=== PATIENT | male | born 1980 | race Two or more races ===

== ENCOUNTER 2016-09-25 15:04 | Emergency (ER) | payer OTHER ==
[~2016-09-25] VITALS: Ht 193 cm; Wt 122.0 kg
[2016-09-25] MEDS ORDERED: SODIUM CHLORIDE FLUSH 10ML SYR IVF ONE ×2 (15:30→16:00)
[2016-09-25] MEDS ORDERED: SODIUM CHLORIDE 0.9% 1,000ML IVBOLUS ONE ×2 (15:30→16:00)
[2016-09-25] MEDS ORDERED: MORPHINE SULFATE 4 MG/ML, 1ML IVPush PRN (15:30)
[2016-09-25] MEDS ORDERED: FAMOTIDINE 20 MG/2 ML IVP ONE (15:30)
[2016-09-25] MEDS ORDERED: ONDANSETRON 2MG/ML, 2ML IVPush ONE ×2 (15:30→16:00)
[2016-09-25] MEDS ORDERED: SODIUM CHLORIDE 0.9% 1,000 ML IV ONE (15:42)
[2016-09-25 15:47] VITALS: BP 113/68
[2016-09-25] MEDS ORDERED: HYDROmorphone 1 MG/ML, 1ML ONE (15:53)
[2016-09-25] MEDS ORDERED: ONDANSETRON 2MG/ML, 2ML ONE (15:54)
[2016-09-25] MEDS ORDERED: HYDROmorphone 1 MG/ML, 1ML IVPush PRN (16:00)
[2016-09-25 16:22] LABS: ASPARTATE AMINO TRANSFERASE 40 U/L (15-37); BLOOD UREA NITROGEN 12 mg/dL (7-18)
== END 2016-09-25 18:03 | disposition home or self-care (01) ==
LOC: ED 17:57
DX: K80.70 Calculus of gallbladder and bile duct without cholecystitis without obstruction (principal)
CPT/HCPCS: 36415; 76700; 80053; 83690; 85025; 93005; 96361; 96374; 96375; 99285; J1170; J2405; J7030

== ENCOUNTER 2016-09-30 13:04 | Inpatient (IN) | payer OTHER ==
[~2016-09-30] VITALS: Ht 190.5 cm; Wt 111.5 kg
[2016-09-30 14:50] LABS: ASPARTATE AMINO TRANSFERASE 219 U/L (15-37); BLOOD UREA NITROGEN 11 mg/dL (7-18)
[2016-09-30] MEDS ORDERED: HYDR-3240 PO (15:02)
[2016-09-30] MEDS ORDERED: ONDA4TAB10 PO (15:03)
[2016-09-30] MEDS ORDERED: CEFTRIAXONE 1,000 MG in SODIUM CHLORIDE 0.9% 50 ML IV ONE (15:30)
[2016-09-30] MEDS ORDERED: METRONIDAZOLE PMX 500MG/100ML 100 ML IV ONE (15:30)
[2016-09-30] MEDS ORDERED: ONDANSETRON 2MG/ML, 2ML IVPush ONE (16:00)
[2016-09-30] MEDS ORDERED: SODIUM CHLORIDE 0.9% 1,000ML IVBOLUS ONE (16:00)
[2016-09-30] MEDS ORDERED: HYDROmorphone 1 MG/ML, 1ML IVPush PRN (16:00)
[2016-09-30] MEDS ORDERED: SODIUM CHLORIDE FLUSH 10ML SYR IVF ONE (16:00)
[2016-09-30] MEDS ORDERED: ONDANSETRON 2MG/ML, 2ML ONE (16:11)
[2016-09-30] MEDS ORDERED: HYDROmorphone 1 MG/ML, 1ML ONE (16:11)
[2016-09-30] MEDS ORDERED: METRONIDAZOLE PMX 500MG/100ML 100 ML ONE (16:25)
[2016-09-30 17:16] VITALS: BP 123/74
[2016-09-30] MEDS: D5%-0.45% NACL 1,000 ML IV SCH ×2 (17:28→23:59)
[2016-09-30] MEDS ORDERED: HYDROcodone/APAP 5/325 TABLET PO PRN (17:30)
[2016-09-30] MEDS ORDERED: ONDANSETRON 2MG/ML, 2ML IVPush PRN (17:30)
[2016-09-30] MEDS ORDERED: LABETALOL 5MG/ML, 20ML IVPush PRN (17:30)
[2016-09-30] MEDS ORDERED: ONDANSETRON ODT 4 MG PO PRN (17:30)
[2016-09-30] MEDS: morphine SULFATE 10 MG/ML, 1ML IVPush PRN ×2 (18:36→21:51)
[2016-09-30 19:25] VITALS: BP 116/70
[2016-10-01 01:05] VITALS: BP 100/61
[2016-10-01 04:21] LABS: BLOOD UREA NITROGEN 8 mg/dL (7-18)
[2016-10-01] MEDS: METRONIDAZOLE PMX 500MG/100ML 100 ML IV SCH ×4 (08:04→23:50)
[2016-10-01 08:17] VITALS: BP 101/65
[2016-10-01] MEDS ORDERED: HYDROcodone/APAP 7.5-325MG/15ML UDC PO PRN (09:00)
[2016-10-01] MEDS ORDERED: PROMETHAZINE 25 MG/ML, 1ML IV PRN (09:00)
[2016-10-01] MEDS ORDERED: OXYcodone 5 MG/5 ML ORAL.SOL UDC PO PRN (09:00)
[2016-10-01] MEDS ORDERED: FENTANYL PF 100 MCG/2ML IV PRN (09:00)
[2016-10-01] MEDS ORDERED: MIDAZOLAM 1 MG/ML, 2ML IV PRN (09:00)
[2016-10-01] MEDS ORDERED: MEPERIDINE/PF 25MG/0.5ML IVPush PRN (09:00)
[2016-10-01] MEDS ORDERED: ACETAMINOPHEN 325 MG TABLET PO PRN (09:00)
[2016-10-01] MEDS ORDERED: HYDROmorphone 1 MG/ML, 1ML IV PRN (09:00)
[2016-10-01] MEDS ORDERED: ONDANSETRON 2MG/ML, 2ML IVPush PRN (09:00)
[2016-10-01] MEDS ORDERED: SCOPOLAMINE PATCH, 1.5MG PATCH.TD72 TD ONE (09:04)
[2016-10-01] MEDS ORDERED: MIDAZOLAM 1 MG/ML, 2ML ONE (09:06)
[2016-10-01] MEDS ORDERED: FENTANYL PF 250 MCG/5ML ONE (09:06)
[2016-10-01] MEDS ORDERED: MIDAZOLAM 1 MG/ML, 5ML IV PRN (09:19)
[2016-10-01] MEDS ORDERED: PROPOFOL 10 MG/ML, 20ML ONE (09:21)
[2016-10-01] MEDS ORDERED: GLYCOPYRROLATE 0.2MG/1ML ONE (09:21)
[2016-10-01] MEDS ORDERED: SUCCINYLCHOLINE 20 MG/ML, 10ML ONE (09:21)
[2016-10-01] MEDS ORDERED: DEXAMETHASONE 4 MG/ML, 1ML ONE (09:21)
[2016-10-01] MEDS ORDERED: ONDANSETRON 2MG/ML, 2ML ONE (09:21)
[2016-10-01] MEDS ORDERED: ROCURONIUM 10 MG/ML ONE (09:21)
[2016-10-01] MEDS ORDERED: NEOSTIGMINE 1 MG/ML, 10ML ONE (09:21)
[2016-10-01] MEDS ORDERED: OMNIPAQUE 350 MG/ML, 50 ML BOTTLE ONE (11:21)
[2016-10-01 11:25] VITALS: BP 107/66
[2016-10-01] MEDS: D5%-0.45% NACL 1,000 ML IV SCH ×2 (13:07→23:51)
[2016-10-01 15:00] VITALS: BP 107/66
[2016-10-01] MEDS ORDERED: CEFTRIAXONE 2 GM in SODIUM CHLORIDE 0.9% 50 ML IV SCH (15:00)
[2016-10-01] MEDS: morphine SULFATE 10 MG/ML, 1ML IVPush PRN (19:42)
[2016-10-01 19:48] VITALS: BP 113/76
[2016-10-02 03:27] VITALS: BP 93/51
[2016-10-02 05:45] LABS: ASPARTATE AMINO TRANSFERASE 114 U/L (15-37); BLOOD UREA NITROGEN 5 mg/dL (7-18)
[2016-10-02 07:08] VITALS: BP 98/60
[2016-10-02] MEDS: METRONIDAZOLE PMX 500MG/100ML 100 ML IV SCH ×3 (07:48→19:51)
[2016-10-02] MEDS: morphine SULFATE 10 MG/ML, 1ML IVPush PRN ×3 (07:51→22:52)
[2016-10-02] MEDS: D5%-0.45% NACL 1,000 ML IV SCH ×2 (09:40→16:49)
[2016-10-02] MEDS ORDERED: SCOPOLAMINE PATCH, 1.5MG PATCH.TD72 TD ONE (14:34)
[2016-10-02] MEDS ORDERED: BUPIVACAINE/PF-EPI 0.5% 1:200K ONE (14:40)
[2016-10-02] MEDS ORDERED: MIDAZOLAM 1 MG/ML, 2ML ONE (14:42)
[2016-10-02] MEDS ORDERED: FENTANYL PF 250 MCG/5ML ONE (14:42)
[2016-10-02] MEDS ORDERED: ONDANSETRON 2MG/ML, 2ML ONE (14:55)
[2016-10-02] MEDS ORDERED: CEFAZOLIN 1,000 MG ONE (14:55)
[2016-10-02] MEDS ORDERED: SUCCINYLCHOLINE 20 MG/ML, 10ML ONE (14:55)
[2016-10-02] MEDS ORDERED: NEOSTIGMINE 1 MG/ML, 10ML ONE (14:55)
[2016-10-02] MEDS ORDERED: GLYCOPYRROLATE 0.2MG/1ML ONE (14:55)
[2016-10-02] MEDS ORDERED: PROPOFOL 10 MG/ML, 20ML ONE (14:55)
[2016-10-02] MEDS ORDERED: ROCURONIUM 10 MG/ML ONE (14:55)
[2016-10-02] MEDS ORDERED: DEXAMETHASONE 4 MG/ML, 5ML ONE (14:55)
[2016-10-02] MEDS ORDERED: KETOROLAC 30 MG/1 ML ONE (14:55)
[2016-10-02] MEDS: CEFTRIAXONE PMX 2GM/50ML 50 ML IV SCH ×2 (15:00→18:10)
[2016-10-02] MEDS ORDERED: BUPIVACAINE/PF 0.5% INFIL ONE (15:12)
[2016-10-02] MEDS ORDERED: OXYcodone 5 MG/5 ML ORAL.SOL UDC PO PRN (15:30)
[2016-10-02] MEDS ORDERED: LABETALOL 5MG/ML, 20ML IV PRN (15:30)
[2016-10-02] MEDS ORDERED: ONDANSETRON 2MG/ML, 2ML IVPush PRN (15:30)
[2016-10-02] MEDS ORDERED: MEPERIDINE/PF 25MG/0.5ML IVPush PRN (15:30)
[2016-10-02] MEDS ORDERED: hydrALAzine 20 MG/ML, 1ML IV PRN (15:30)
[2016-10-02] MEDS ORDERED: OXYcodone 5 MG/5 ML ORAL.SOL UDC ONE (16:44)
[2016-10-02] MEDS ORDERED: FENTANYL PF 100 MCG/2ML ONE (16:44)
[2016-10-02] MEDS: FENTANYL PF 100 MCG/2ML IV PRN ×2 (16:49→17:06)
[2016-10-02] MEDS ORDERED: HYDROmorphone 1 MG/ML, 1ML ONE ×2 (17:19→17:31)
[2016-10-02] MEDS: HYDROmorphone 1 MG/ML, 1ML IV PRN ×4 (17:20→17:42)
[2016-10-02] MEDS ORDERED: ONDANSETRON 2MG/ML, 2ML IV PRN (18:30)
[2016-10-02] MEDS ORDERED: CEFOTETAN PMX 2GM/50ML 50 ML IV SCH (18:30)
[2016-10-02] MEDS ORDERED: MORPHINE SULFATE 4 MG/ML, 1ML IV PRN (18:30)
[2016-10-02] MEDS: D5%-0.45NACL+KCL 20MEQ 1,000 ML IV SCH (19:14)
[2016-10-02] MEDS: DOCUSATE 100 MG CAPSULE PO SCH (19:50)
[2016-10-02 20:28] VITALS: BP 110/66
[2016-10-03 01:15] VITALS: BP 105/62
[2016-10-03] MEDS: METRONIDAZOLE PMX 500MG/100ML 100 ML IV SCH ×2 (04:03→12:00)
[2016-10-03] MEDS: morphine SULFATE 10 MG/ML, 1ML IVPush PRN (05:50)
[2016-10-03] MEDS: D5%-0.45NACL+KCL 20MEQ 1,000 ML IV SCH (05:51)
[2016-10-03 06:13] LABS: ASPARTATE AMINO TRANSFERASE 152 U/L (15-37); BLOOD UREA NITROGEN 4 mg/dL (7-18)
[2016-10-03 07:04] VITALS: BP 100/58
[2016-10-03] MEDS: DOCUSATE 100 MG CAPSULE PO SCH (07:46)
[2016-10-03] MEDS ORDERED: AMOX1TAB64 PO (11:30)
[2016-10-03] MEDS ORDERED: OXYcodone/APAP 7.5/325MG TABLET PO PRN (11:30)
[2016-10-03] MEDS ORDERED: OXYC-223 PO (11:30)
== END 2016-10-03 13:25 | disposition home or self-care (01) | DRG 417 ==
LOC: ED 16:04 → EDIP 16:50 → 3NE 16:58 → DCLOUNGE 10-03 12:59
PROVIDERS: ADMIT Hospitalist; ATTEND Hospitalist
PROC: 0FC98ZZ Extirpation of Matter from Common Bile Duct, Via Natural or Artificial Opening Endoscopic (ICD-10-PCS; 2016-10-01)
PROC: 0F7C8ZZ Dilation of Ampulla of Vater, Via Natural or Artificial Opening Endoscopic (ICD-10-PCS; 2016-10-01)
PROC: BF111ZZ Fluoroscopy of Biliary and Pancreatic Ducts using Low Osmolar Contrast (ICD-10-PCS; 2016-10-01)
PROC: 0FT44ZZ Resection of Gallbladder, Percutaneous Endoscopic Approach (ICD-10-PCS; principal; 2016-10-02 15:00)
DX: K80.67 Calculus of gallbladder and bile duct with acute and chronic cholecystitis with obstruction (principal); E43 Unspecified severe protein-calorie malnutrition; Z80.3 Family history of malignant neoplasm of breast; Z90.49 Acquired absence of other specified parts of digestive tract; Z68.30 Body mass index [BMI] 30.0-30.9, adult; R73.9 Hyperglycemia, unspecified
CPT/HCPCS: 36415; 71010; 74181; 74328; 76700; 80048; 80053; 80076; 81001; 82248; 83690; 83735; 84100; 85025; 85610; 85730; 86704; 86706; 86708; 86803; 87086; 87340; 88304; 93005; 96365; 96367; 96375; C1729; J0690; J0696; J1100; J1170; J1885; J2250; J2405; J2704; J2710; J3010; J3490; Q9967; C1769; J0330; J2270; J3480; J7030